=== PATIENT | female | born 1970 | race Caucasian/White ===

== ENCOUNTER 2017-09-19 09:17 | Day surgery (SDC) | payer OTHER ==
--- NOTE | 2017-09-01 13:33 | HP ---
SURGICAL PREADMISSION HISTORY AND PHYSICAL DATE OF ADMISSION: 09/19/2017 DATE OF DICTATION: 08/26/2017 Patient to be admitted to the [facility] for laparoscopic cholecystectomy in the near future, date to be determined. HISTORY: This is a 46-year-old woman who was well up until August 15, when she presented with severe epigastric and right upper quadrant pain for which she required evaluation and hospitalization at the [facility]. At the time of that admission, a gallbladder ultrasound had demonstrated evidence of cholelithiasis with no evidence of acute cholecystitis. There was no intra- or extrahepatic duct dilatation noted on that initial study. Fatty liver noted incidentally. Laboratory data at that time demonstrated initial elevation of her ALT at 167 and her AST at 147, with a normal bilirubin and normal alkaline phosphatase. Her repeat chemistries, however, over the subsequent 24 hours demonstrated significant abnormality of her transaminases and bilirubin. On August 16, 2017, her bilirubin had climbed to 2.8. Her AST had climbed to 1013, her ALT had climbed to 879, alkaline phosphatase was normal. An ERCP had been completed during that admission, but failed to demonstrate any evidence of choledocholithiasis. There was incidental note of a small pseudocyst involving the tail of the pancreas which according to the patient was incidentally noted on her imaging for her low back disorder in December 2016, and for which she has been followed by the GI service with no change. Patient was then treated medically at that time and ultimately advised surgery. However, the patient declined surgery at [facility]. Since that time, she has been followed up by her primary care physician as an outpatient. Apparently, her liver chemistries had been slowly improving with her most recent blood tests completed on August 21, 2017, demonstrating a normalized bilirubin of 0.4, normal AST of 40, normal alkaline phosphatase of 106, and minimal elevation of her AST at 40. Apparently, the patient had had a slight elevation of her lipase during her initial admission which has also since resolved. At this juncture, the patient presents for laparoscopic removal of her gallbladder. No fatty food intolerance by history. Patient has never been symptomatic in the past. She did have an intentional weight loss of 25 pounds over the last several months secondary to dieting. There has been no history of jaundice. Her mother did have her gallbladder removed years ago. PAST MEDICAL HISTORY: Significant for hypertension, hypercholesterolemia, nephrolithiasis, and lumbar disk disease. Patient also states that she did have trouble with blood clots during pregnancies remotely. She was told that she was diagnosed with a genetic disorder called MTHFR. She was told that she required no anticoagulation other than closer management in and around the time of if she had moved in that direction. PAST SURGICAL HISTORY: Significant for section in 2006, as well as D&Cs in 2009 and 2011. ALLERGIES: No medication allergies. CURRENT MEDICATIONS: Xyzal. SOCIAL HISTORY: Negative tobacco. Negative alcohol. FAMILY HISTORY: Father age 75, history of prostate cancer, hypertension, and hyperlipidemia. Mother age 75, history of CLL, hypertension, and hyperlipidemia. Siblings: One with thyroid cancer. REVIEW OF SYSTEMS: Otherwise nil. PHYSICAL EXAMINATION: Abdomen: Obese, soft, nontender with no palpable findings. IMPRESSION: Chronic cholecystitis/cholelithiasis. Recent event which appears to suggest that the patient had passed gallstones. Based on recent liver chemistries which have essentially normalized and in the face of a normal magnetic resonance cholangiopancreatography, choledocholithiasis is unlikely but still remotely possible. PLAN: At this juncture, patient presents for laparoscopic removal of her gallbladder/possible open removal. Obviously, if she becomes symptomatic postoperatively, her liver chemistries and will need to be checked once again. Indications, alternatives, possible complications of the intended procedure reviewed. Consent obtained. Patient to be seen by Dr. Juarez of the Medical Service. Please refer to her notes for those medical details including her notes in reference to any perioperative management of the patient's underlying genetic finding (i.e. MTHFR). OLLIE URENA M.D. [id number]
[2017-09-11 13:27] VITALS: BMI 36.7
[2017-09-19] MEDS ORDERED: morphine SULFATE 4 MG/ML VIAL IVPB PRN (10:36)
[2017-09-19] MEDS ORDERED: oxyCODONE HCL 5 MG TABLET PO PRN (10:36)
[2017-09-19] MEDS ORDERED: ACETAMINOPHEN 325 MG TABLET (FP) PO PRN (10:36)
[2017-09-19] MEDS ORDERED: PROPOFOL 20 ML ONE (10:38)
[2017-09-19] MEDS ORDERED: ROCURONIUM BROMIDE 50 MG/5 ML VIAL ONE (10:38)
[2017-09-19] MEDS ORDERED: MIDAZOLAM HCL 2 MG/2 ML SINGLE DOSE VIAL ONE ×2 (10:39→12:56)
[2017-09-19] MEDS ORDERED: ONDANSETRON 4 MG/2 ML VIAL IVPUSH PRN (11:16)
[2017-09-19] MEDS ORDERED: LACTATED RINGERS SOLUTION 1,000 ML IV SCH (11:30)
[2017-09-19] MEDS ORDERED: DEXAMETHASONE SOD PHOSPHATE 4 MG/1 ML VIAL ONE (11:41)
[2017-09-19] MEDS ORDERED: ceFAZolin SODIUM 1 GM VIAL ONE (11:41)
[2017-09-19] MEDS ORDERED: NEOSTIGMINE METHYLSULFATE 0.5 MG/ML - 10 ML MDV ONE ×2 (12:07→12:25)
[2017-09-19] MEDS ORDERED: ONDANSETRON 4 MG/2 ML VIAL ONE (12:27)
[2017-09-19] MEDS ORDERED: FAMOTIDINE 20 MG/50 ML IVPB 20 MG/50 ML MG IVPB ONE (12:35)
[2017-09-19] MEDS: MIDAZOLAM HCL 2 MG/2 ML SINGLE DOSE VIAL IVPUSH ONE ×2 (13:01→15:23)
--- NOTE | 2017-09-19 13:52 | OP ---
DATE OF OPERATION: 09/19/2017 PREOPERATIVE DIAGNOSIS: Chronic cholecystitis/cholelithiasis. POSTOPERATIVE DIAGNOSIS: Chronic cholecystitis/cholelithiasis. PROCEDURE: Laparoscopic cholecystectomy. OPERATING SURGEON: Ollie Ponce MD COMMERCIAL GLAZIER: Julien Claros MD ANESTHESIA: General. ANESTHESIOLOGIST: Roshan Dawn MD INSTRUMENT COUNT: Correct. ESTIMATED BLOOD LOSS: Minimal. SPECIMEN: Gallbladder. DRAINS: None. HISTORY: This is a 46-year-old woman who presents for laparoscopic removal of her gallbladder as management for symptomatic cholelithiasis. Indications, alternatives, and possible complications were reviewed. Consent obtained. DESCRIPTION OF PROCEDURE: With the patient in the supine position, administered general anesthesia, the abdomen was prepped and draped in the usual sterile fashion using chlorhexidine. Small infraumbilical incision was made through which a Veress needle was placed into the abdominal cavity. The abdominal cavity was insufflated to an adequate pressure using CO2 gas. The Veress needle was removed and an 11-mm trochar port placed through the infraumbilical wound. The camera lens was passed through this port and intra-abdominal cavity visualized. Under direct vision two 5-mm ports were placed through which clamps were passed to maintain traction on the gallbladder during the dissection. An 11-mm port was placed in the epigastrium through which the operating instruments were passed. Limited exploration of the abdomen revealed several adhesions about the gallbladder which were taken down under direct vision exposing the entire gallbladder and hepatoduodenal ligament. The gallbladder was mildly thickened. The peritoneum and hepatoduodenal ligament were incised. The cystic duct was identified. The cystic duct, bile duct tension was noted. The cystic duct was clipped proximally, distally and divided. The adjacent artery was managed similarly. The gallbladder was then lifted from the gallbladder bed, lysing its peritoneal attachment using the electrocautery. Prior to complete disconnection, the bed was inspected and adequate hemostasis noted. Openly the gallbladder was placed in a retrieval bag. The right upper quadrant was irrigated. The irrigant retrieved. All port sites were examined and ports removed under direct vision with no bleeding identified. Ultimately, the gallbladder was extracted through the umbilical port site in its retrieval bag without difficulty. All of the gas was allowed to escape from the peritoneal cavity. The fascia at the umbilicus was approximated using interrupted number 1 Vicryl sutures. All skin wounds were closed using subcuticular 4-0 Biosyn sutures. The patient tolerated the procedure and the procedure was terminated. OLLIE URENA M.D. [id number]
[2017-09-19] MEDS: IBUPROFEN 800 MG/8 ML IJ IVPB PRN (15:22)
[2017-09-19] MEDS: D5-1/2NS+20 MEQ KCL - 20 MEQ/1,000 ML INFUS.BAG IV SCH (15:22)
[2017-09-20] MEDS: IBUPROFEN 800 MG/8 ML IJ IVPB PRN ×2 (02:20→10:37)
[2017-09-20 06:35] VITALS: BP 100/60; PULSE 56; TEMP 98.9
[2017-09-20] MEDS ORDERED: ENOXAPARIN NA (PORCINE) 40 MG/0.4 ML DISP.SYRIN SQ SCH (10:00)
[2017-09-20] MEDS ORDERED: DOCUSATE SODIUM 100 MG CAPSULE (FP) PO SCH (10:00)
[2017-09-20] MEDS ORDERED: PANTOPRAZOLE SODIUM 40 MG VIAL IVPUSH SCH (10:00)
[2017-09-20] MEDS: D5-1/2NS+20 MEQ KCL - 20 MEQ/1,000 ML INFUS.BAG IV SCH (10:38)
--- NOTE | 2017-09-25 11:49 | PATH ---
Surgical Pathology Report Patient Name: LORIE CASTAÑEDA [facility]. Rec. #: [id number] /Age/Gender: 1970 (Age: 46) / F Account: [id number] Location: [facility] AMBULATORY Taken: 09/19/2017 Received: 09/19/2017 Reported: 09/25/2017 Physicians: Jhonny Rosenthal M.D. Specimen(s) Received GALLBLADDER Clinical History Calculus of gallbladder Final Diagnosis GALLBLADDER, CHOLECYSTECTOMY: CHRONIC CHOLECYSTITIS AND CHOLELITHIASIS. Electronically Signed Eloina San M.D. Gross Description Received in formalin, labeled "gallbladder," is a 6.8 x 2.4 x 2.0 cm. gallbladder with a 0.2 cm. in length portion of cystic duct attached. The outer surface is larson-green with a focal defect and varies from smooth to shaggy. The lumen contains a tenacious bile as well as multiple yellow, bosselated choleliths ranging from 0.1-0.3 cm in greatest dimension. The mucosa is green and velvety. The wall of the gallbladder averages 0.1 cm. in thickness. Synthetic Cloth Binding Cutter sections are submitted in one cassette. 09/22/201709/22/2017
== END 2017-09-20 12:00 | disposition home or self-care (01) ==
LOC: FASU 09:17 → FM/S 14:46 → FASU 09-20 12:00
PROVIDERS: ATTEND Surgery
PROC: 0FT44ZZ Resection of Gallbladder, Percutaneous Endoscopic Approach (ICD-10-PCS; principal; 2017-09-19 10:00)
DX: K80.44 Calculus of bile duct with chronic cholecystitis without obstruction (principal); I10 Essential (primary) hypertension; E78.00 Pure hypercholesterolemia, unspecified
CPT/HCPCS: 84703; 88304-TC; 94760